=== PATIENT | male | born 1975 | race Caucasian/White ===

== ENCOUNTER 2020-01-21 12:54 | Emergency (ER) | payer MEDICAID ==
[~2020-01-21] VITALS: Ht 170.2 cm; Wt 86.0 kg
[2020-01-21] MEDS ORDERED: ONDANSETRON HCL 4MG/2ML INJ IV STA (13:51)
[2020-01-21] MEDS ORDERED: SODIUM CHLORIDE 0.9% 1,000 ML IV ONE (13:51)
[2020-01-21 14:11] LABS: BASOPHILS % 1.1 % (0.0-2.0); HEMATOCRIT. 41.5 % (42.0-52.0); HEMOGLOBIN. 14.1 g/dL (14.0-18.0); LYMPHOCYTES % 18.4 % (20.0-50.0); MEAN CORPUSCULAR HEMOGLOBIN 29.8 pg (28.0-32.0); MEAN CORPUSCULAR VOLUME 87.9 fL (80.0-94.0); MEAN PLATELET VOLUME 9.6 fl (7.4-10.4); MONOCYTES % 6.1 % (2.0-8.0); NEUTROPHILS % 72.4 % (40.0-76.0); PLATELET 247 x1000/uL (130-400); RED BLOOD CELL COUNT 4.73 mill/uL (4.7-6.1); RED CELL DISTRIBUTION WIDTH 14.4 % (11.6-14.6)
[2020-01-21 14:17] LABS: CHLORIDE 107 mEq/L (98-107)
[2020-01-21 14:21] LABS: ETHANOL BLOOD < 10 mg/dL
[2020-01-21] MEDS ORDERED: AZITHROMYCIN 500 MG TABLET PO ONE ×2 (15:15→15:30)
[2020-01-21] MEDS ORDERED: CEFTRIAXONE 1 G PREMIX 50 ML IV ONE (15:15)
[2020-01-21 21:30] VITALS: BP 170/100
[2020-01-21] MEDS ORDERED: LISINOPRIL 20MG TABLET PO ONE (21:45)
== END 2020-01-21 23:45 | disposition short-term general hospital (02) ==
LOC: ER 12:54
DX: N17.9 Acute kidney failure, unspecified (principal); R42 Dizziness and giddiness; E11.9 Type 2 diabetes mellitus without complications; I10 Essential (primary) hypertension
CPT/HCPCS: 36415; 70450; 71045; 80053; 80320; 83880; 84484; 85025; 87040; 87635; 93005; 96361; 96365; 96375; 99285; J0696; J2405; J7030; Z7610; G0480